=== PATIENT | female | born 1965 | race Caucasian/White ===

== ENCOUNTER 2025-07-10 02:41 | Outpatient (CLI) | payer MEDICAID, SELFPAY ==
[2025-07-10 10:00] LABS: HCT 39.7 % (36.0-46.0); HGB 12.7 g/dL (11.2-15.7); MCH 26.7 pg (27.0-33.0); MCHC 32.0 % (32.0-36.0); MCV 84 fL (80-95); MPV 9.4 fL (8.0-11.0); Platelet Count 332 10^3/uL (130-400); RBC 4.75 10^6/uL (3.93-5.22); RDW 12.9 % (11.7-14.6); RDW-SD 39.2 fL; WBC 6.95 10^3/uL (4.4-10.8)
[2025-07-10 13:54] LABS: Anion Gap 8 mmol/L (3-11); BUN 12 mg/dL (9-23); CO2 29.0 mmol/L (20.0-31.0); Calcium 10.2 mg/dL (8.3-10.6); Chloride 103 mmol/L (98-107); Cholesterol 226 mg/dL (<200); Glucose 91 mg/dL (74-106); HDL Cholesterol 91 mg/dL (>40); Potassium 3.7 mmol/L (3.5-5.1); Sodium 140 mmol/L (136-145)
== END 2025-07-10 02:42 | disposition home or self-care (01) ==
LOC: LBO 02:41
DX: Z00.00 Encounter for general adult medical examination without abnormal findings (principal)
CPT/HCPCS: 36415; 80048; 80061; 85027